=== PATIENT | male | born 2000 | race Caucasian/White ===

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

== ENCOUNTER 2023-06-15 18:02 | Inpatient (IN) | payer BC, SELFPAY ==
[2023-06-15 18:03] VITALS: BP 129/78; PULSE 58; RESP 18; TEMP 36.5; O2SAT 100; BMI 23.8
[2023-06-15] MEDS: Ondansetron 4 MG/2 ML Vial IV (18:25)
[2023-06-15] MEDS: 0.9% Normal Saline (1000mL) 1,000 ML 1000 ML IV (18:26)
--- NOTE | 2023-06-15 18:38 | EX.ED.DYSGE1 ---
HPI History of Present Illness Chief Complaint: Nausea/Vomiting Detail of Chief Complaint: Nausea and vomiting since this morning Informant: patient Onset/Context/Timing Onset: Today and Hours Context: Sudden Onset Timing: Intermittent Quality: Nausea and vomiting numerous times with aching abdominal pain Location: Was generalized now resolved Current Severity: Gone Maximum Severity: Moderate Worsened by: Nothing Relieved by: Nothing Associated Symptoms Associated Symptoms: No other symptoms Narrative Narrative: Patient is a 23-year-old male who presents to the emergency part with nausea and vomiting multiple times since this morning. He states he is vomiting every 2030 minutes. He has vomited several times since arrival. He denies fever or chills. Denies headache. Denies visual, ocular auditory symptoms. He denies neck pain or neck stiffness. He denies cardiac symptoms. Denies respiratory symptoms. He presently has no pain. He does endorse thirst. He denies orthostatic symptoms. He denies dysuria, frequency, urgency or hematuria. He endorses myalgias or arthralgias. He denies rash. No roommates are presently ill. There was a roommate that was ill before that had other symptoms. Prior similar symptoms: No Recent Illness/Hospitalization: No PFSH PFSH Medical History Smoker Medical History no medical history no medical history Home Medications NK 06/15/23 [History Last Taken Unknown] Allergy/AdvReac Type Severity Reaction Status Date / Time No Known Allergies Allergy Verified 05/09/19 17:28 Surgical History no surgical history no surgical history Social History Smoking Status: Current some day smoker tobacco type: e-cigarettes ROS ROS ED Constitutional Constitutional ED: Denies chills, fever(s), subjective, sweats or weight loss Eyes Eyes: Denies blurry vision, change in vision or diplopia ENT ENT ED: Denies ear pain, rhinorrhea or sore throat Cardiovascular Cardiovascular: Denies chest pain or palpitations Respiratory/Chest Respiratory/Chest: Denies cough, dyspnea or dyspnea on exertion Gastrointestinal Gastrointestinal: Reports abdominal pain, nausea and vomiting; Denies constipation, diarrhea or melena Genitourinary Genitourinary ED: Denies dysuria, hematuria or urinary frequency Musculoskeletal Musculoskeletal: Denies arthralgias, back pain, myalgias or neck pain Integumentary Denies rash Neurologic Neurologic: Reports weakness; Denies headache(s) or paresthesias Endocrine Endocrinology: Denies cold intolerance or heat intolerance Hematologic/Lymphatic Hematologic/Lymphatic: Reports systems reviewed and no addt'l complaints, except as documented EXAM Physical Exam Const Vital Signs: 06/15/23 18:03 06/15/23 20:23 Temperature 97.7 F L Temperature Source Temporal Pulse Rate 58 L 58 L Respiratory Rate 18 16 Blood Pressure 129/78 H 147/87 H Blood Pressure Mean 95 107 Pulse Ox 100 100 Oxygen Delivery Method Room Air Room Air Positive well nourished and well developed Constitutional Narrative: Patient appears ill but not toxic. General Appearance ED: well developed and pallor; Negative for cyanotic or diaphoretic HEENT Reports moist mucous membranes HEENT Narrative: Head is atraumatic and normocephalic. Ears are normal. Nares are patent. Posterior pharynx is unremarkable. Eyes PERRL and EOMs intact bilaterally General Eye ED: Negative for pale conjunctiva or scleral icterus Neck no lymphadenopathy, supple and no JVD Chest Wall inspection of chest normal and palpation of chest normal Resp normal respiratory effort and clear to auscultation bilaterally Cardio regular rate, regular rhythm, S1 normal heart sound, S2 normal heart sound and no murmurs GI normal to inspection, nondistended, normoactive bowel sounds, non-tender, non-distended and no masses; Negative for hepatosplenomegaly GI Narrative: Emesis has a brown appearance. Back/Spine no CVA tenderness Extremity normal to inspection Neuro oriented x3, CN's II-XII intact bilaterally and no sensory deficits noted Sensorium / Orientation: alert Psych mental status grossly normal Skin no rashes or lesions noted, no wounds and skin turgor normal General Skin Exam: pallor; Negative for jaundice MDM MDM MDM Narrative Medical decision making narrative: Patient with nausea vomiting. Patient's exam and history is not consistent with bowel obstruction. He has had no prior surgery. His abdomen not distended. Presently is pain-free. Emesis is not appear bloody and there is no coffee grounds. This could represent a viral illness and most likely is the cause of his symptoms. Doubt biliary disease. BMP was obtained to assess renal function and electrolytes as well as anion gap. Patient was treated with Zofran for his nausea. He was not given anything else since he is presently not complaining of pain. Nurse informing that patient's still having nausea vomiting was reassessed at 1920 he is still having nausea and vomiting. He is filled an emesis bag with what appears to be blood. The emesis has flecks of coffee grounds and very brown appearing fluid. In light of this patient received IV Protonix and Reglan. He also was typed and screened. We will add a CBC which was not initially ordered. Triage nurse informing that patient admitted to drinking 7 beers last night. In light of this will obtain liver profile and lipase since this may also represent alcoholic hepatitis and pancreatitis. Parents live in [facility]. They were contacted and informed that their son was in the emergency room and that he will need to be admitted and what specifically was going on. When I spoke to them I was unaware of the alcohol consumption last evening. History & Record Review Additional record(s) reviewed:: No prior records Lab Data Attestation: I reviewed the patient's lab results. Lab results narrative: CO2 is 18 with an elevated anion gap. BUN and creatinine are elevated 21 and 1.41. Calcium slightly elevated which may be due to dehydration. White count is elevated with shift. This most likely is a stress reaction. H&H is 16.5 and 47.5. There are no comparisons. Labs: Laboratory Results - last 24 hr 06/15/23 06/15/23 18:16 19:40 WBC 20.1 H RBC 5.59 Hgb 16.5 Hct 47.4 MCV 84.8 MCH 29.5 MCHC 34.8 RDW Std Deviation 38.6 RDW Coeff of Marva 12.6 Plt Count 347 MPV 11.3 Immature Gran % (Auto) 0.700 Neut % (Auto) 90.9 H Lymph % (Auto) 2.9 L [place] % (Auto) 5.1 Eos % (Auto) 0.0 Baso % (Auto) 0.4 Absolute Neuts (auto) 18.3 H Absolute Lymphs (auto) 0.58 L Nucleated RBC % 0 Differential Comment SCANNED Sodium 138 Potassium 4.1 Chloride 99 Carbon Dioxide 18.0 L Anion Gap 21 H BUN 21 H Creatinine 1.41 H Estim Creat Clear Calc 92.87 Est GFR (MDRD) Af Amer 81 Est GFR (MDRD) Non-Af 67 BUN/Creatinine Ratio 14.9 Glucose 115 H Calcium 10.4 H Total Bilirubin 1.10 H Direct Bilirubin 0.25 AST 38 H ALT 49 Alkaline Phosphatase 42 L Total Protein 8.8 H Albumin 5.3 H Globulin 3.5 Lipase 10 L Blood Type A POSITIVE Antibody Screen NEGATIVE Discharge Plan Dx/Rx/DC Orders Clinical Impression: KAUSHAL (acute kidney injury), High anion gap metabolic acidosis, Intractable nausea and vomiting, Acute upper GI bleed Disposition Disposition: Acute Care Hospital [facility]
[2023-06-15 18:41] LABS: Anion Gap 21 (5-15); BUN 21 mg/dL (7-18); BUN/Creat Ratio 14.9 RATIO (10-20); Calcium,Total 10.4 mg/dL (8.5-10.1); Chloride 99 mmol/L (98-107); Creatinine, Serum 1.41 mg/dL (0.70-1.30); EST Glomerular Filtration Rate 67 mL/min (>60); Est Glom Filt Rate - Afr Amer 81 mL/min (>60); Estimated Creatinine Clearance 92.87 ml/min; Glucose 115 mg/dL (74-106); Potassium 4.1 mmol/L (3.5-5.1); Sodium Level 138 mmol/L (136-145)
[2023-06-15] MEDS: Metoclopramide 10 MG/2 ML Vial 5 MG IV (19:35)
[2023-06-15] MEDS: Pantoprazole Sodium 80 MG in 0.9% Normal Saline (50mL Bag) 15 ML 420 MG IV BOLUS (19:41)
[2023-06-15 20:11] LABS: Absolute Lymphocyte Count 0.58 X10^3/uL (0.83-4.51); Absolute Neutrophil Count 18.3 X10^3/uL (2.0-7.7); Basophil# 0.08 X10^3/uL; Basophil% 0.4 % (0-1); Hematocrit 47.4 % (40-54); Hemoglobin 16.5 g/dL (13.0-16.5); Lymphocyte # 0.58 X10^3/ul (0.83-4.51); Lymphocyte % 2.9 % (19-41); Mean Corp Hgb Conc 34.8 g/dL (32-36); Mean Corpuscular Hgb 29.5 pg (27.0-32.0); Mean Corpuscular Volume 84.8 fL (80-94); Mean Platelet Vol. 11.3 fl (6.2-12.0); Monocyte# 1.03 X10^3/uL; Monocyte% 5.1 % (0-10); NRBC Flagged by Analyzer 0 % (0-5); Neutrophil # 18.28 X10^3/uL (2.7-7.7); Neutrophil % 90.9 % (47-70); POSITIVE DIFFERENTIAL YES; Platelet Count 347 K/mm3 (150-450); RBC Distribution Width CV 12.6 % (11.6-14.6); RBC Distribution Width SD 38.6 fl (35.1-43.9); Red Blood Count 5.59 M/mm3 (4.6-6.2); White Blood Count 20.1 K/mm3 (4.4-11.0)
[2023-06-15 20:13] LABS: Differential Indicated SCAN CRITERIA MET
[2023-06-15 20:23] VITALS: BP 147/87; PULSE 58; RESP 16; O2SAT 100
[2023-06-15 20:27] LABS: AST(SGOT) 38 U/L (15-37); Alanine Aminotransfer ALT/SGPT 49 U/L (16-61); Albumin, Serum 5.3 g/dL (3.2-5.0); Alkaline Phosphatase 42 U/L (45-117); Bilirubin, Direct 0.25 mg/dL (0.00-0.30); Globulin 3.5 g/dL (2.2-4.2); Protein, Total 8.8 g/dL (6.4-8.2)
[2023-06-15 20:30] LABS: Lipase 10 U/L (13-75)
[2023-06-15 20:37] LABS: Differential Comment SCANNED
--- NOTE | 2023-06-15 22:05 | PCM.HP.STD ---
HPI - General General Date of Admission: 06/15/23 Date of Service: 06/15/23 Chief Complaint: Nausea and vomiting HPI Narrative MARIELY BRIONES, is a 23 M with a significant history of alcoholism who presents emergency department with multiple episodes of vomiting. His nausea and vomiting started at about 8 AM on the day of presentation. He reported that he was vomiting about every 20 minutes. Subsequent vomitus looked brown. Emergency department doctor look at patient's emesis at the ED and determined that it looked bloody. He reports abdominal pain earlier on the day of presentation. On the night before presentation patient drank heavily. Patient who had graduated from the [employer] a year ago stop by at the [employer] to celebrate [place] weekend with his friends who are still at the [employer] and had so much to drink as above. Patient reports drinking about 3 times every week. Reportedly on the days that he drinks he drinks about 7 bottles of beer. PFSH Medical History Smoker Medical History no medical history Home Medications NK 06/15/23 [History Last Taken Unknown] Allergy/AdvReac Type Severity Reaction Status Date / Time No Known Allergies Allergy Verified 05/09/19 17:28 Family History Other Cancer Surgical History no surgical history no surgical history Social History Smoking Status: Current some day smoker tobacco type: e-cigarettes ROS ROS Narrative Pertinent positives and pertinent negatives as noted in HPI. All other systems were reviewed and are negative Vital Signs Vital Signs Vital Signs: 06/15/23 18:03 06/15/23 20:23 Temperature 97.7 F L Temperature Source Temporal Pulse Rate 58 L 58 L Respiratory Rate 18 16 Blood Pressure 129/78 H 147/87 H Blood Pressure Mean 95 107 Pulse Ox 100 100 Oxygen Delivery Method Room Air Room Air Weight Weight: 82.1 kg Body Mass Index (BMI) 23.8 Physical Exam Narrative Physical exam: General: Well-nourished, well-developed. Head: Normocephalic, atraumatic, no tenderness Eyes: Vision is grossly intact. EOMI ENT, no trauma, moist mucous membranes, no rhinorrhea Neck: Nontender, No thyromegaly. CVS: Regular rate and rhythm. S1-S2 present. No murmur, gallop or rub. Respiratory : clear to auscultation bilaterally, chest wall nontender Abdomen: Soft, nontender, nondistended, normal bowel sounds, no masses : Deferred Back: Nontender, no CVA tenderness. Extremities: Nontender full range of motion, no trauma Skin: Normal color, no trauma, abrasions Neuro: Alert, oriented, cranial nerves II through XII grossly intact. Psychiatry: Normal mood. Normal affect. Not depressed. Not anxious. Results Lab / Micro Data 06/16/23 00:01 06/15/23 18:16 Labs: Laboratory Results - last 24 hr 06/15/23 18:16: Sodium 138, Potassium 4.1, Chloride 99, Carbon Dioxide 18.0 L, Anion Gap 21 H, BUN 21 H, Creatinine 1.41 H, Estim Creat Clear Calc 92.87, Est GFR (MDRD) Af Amer 81, Est GFR (MDRD) Non-Af 67, BUN/Creatinine Ratio 14.9, Glucose 115 H, Calcium 10.4 H, Total Bilirubin 1.10 H, Direct Bilirubin 0.25, AST 38 H, ALT 49, Alkaline Phosphatase 42 L, Total Protein 8.8 H, Albumin 5.3 H, Globulin 3.5, Lipase 10 L 06/15/23 19:40: WBC 20.1 H, RBC 5.59, Hgb 16.5, Hct 47.4, MCV 84.8, MCH 29.5, MCHC 34.8, RDW Std Deviation 38.6, RDW Coeff of Marva 12.6, Plt Count 347, MPV 11.3, Immature Gran % (Auto) 0.700, Neut % (Auto) 90.9 H, Lymph % (Auto) 2.9 L, [place] % (Auto) 5.1, Eos % (Auto) 0.0, Baso % (Auto) 0.4, Absolute Neuts (auto) 18.3 H, Absolute Lymphs (auto) 0.58 L, Nucleated RBC % 0, Differential Comment SCANNED, Blood Type A POSITIVE, Antibody Screen NEGATIVE Assessment & Plan Assessment/Plan (1) Acute upper GI bleed: (2) High anion gap metabolic acidosis: (3) Intractable nausea and vomiting: (4) KAUSHAL (acute kidney injury): PLAN: Plan Intractable nausea and vomiting with acute upper GI bleed. Etiology could be from gastritis, Boerhave syndrome, or Valorie-Higuera tears. Normal saline hydration ordered. Protonix IV ordered. Trend H&H and CBC. GI consult was considered. However patient reports improvement in symptoms. We will hold on GI consult for now. If patient symptoms will care or he becomes significantly anemic consider consulting GI. N.p.o. ordered. However, patient is requesting ice chips. Will permit a chips before midnight of 06/16/2023. Acute kidney injury Creatinine of 1.1 on presentation. With his age of being 23 most likely this is KAUSHAL. Gentle IV hydration. Avoid nephrotoxic's. Trend CMP. Anion gap metabolic acidosis Patient with Of 18: Anion gap of 21. Likely secondary to uremia. Treat KAUSHAL as above. Trend CMP. Alcoholism Counseled Placed on CIWA protocol with as needed Ativan IV. Hyperbilirubinemia Likely from stress. Trend CMP. Hypocalcemia Counseled about 10.4 on presentation. IV fluids as above. Trend CMP. Elevated liver enzymes AST is mildly elevated. Likely due to alcoholism. Trend. DVT prophylaxis: Low risk. Encourage ambulation. Time spent in the patient's overall evaluation,decision-making process, review of diagnostic data, adjustment of management, discussion with other providers, nursing and ancillary staff involved in patient's care documentation, 75 minutes. Charges/Coding Visit Charges Inpatient E&M: 51939 Init Hosp L3
[2023-06-15 22:17] VITALS: BP 156/60; PULSE 61; RESP 16; O2SAT 100
[2023-06-15 22:47] VITALS: BMI 22.8
[2023-06-15 22:50] VITALS: BP 122/58; PULSE 64; RESP 14; TEMP 37.1; O2SAT 98
[2023-06-15] MEDS: 0.9% Normal Saline (1000mL) 1,000 ML 100 ML IV (23:08)
[2023-06-15] MEDS: proCHLORPERazine 10 MG/2 ML Vial 5 MG IV (23:37)
[2023-06-15] MEDS: 0.9% Saline Lock 10 ML Syringe IV (23:38)
[2023-06-15] MEDS: Thiamine Hydrochloride 100 MG in 0.9% Normal Saline (50mL Bag) 50 ML 200 MG IV (23:40)
[2023-06-16 00:14] LABS: Hematocrit 44.9 % (40-54); Hemoglobin 15.1 g/dL (13.0-16.5)
[2023-06-16 04:44] VITALS: BP 153/95; PULSE 99; RESP 16; TEMP 37.2; O2SAT 98
[2023-06-16 06:54] LABS: Absolute Lymphocyte Count 0.53 X10^3/uL (0.83-4.51); Absolute Neutrophil Count 14.8 X10^3/uL (2.0-7.7); Basophil# 0.05 X10^3/uL; Basophil% 0.3 % (0-1); Eosinophil# 1.48 X10^3/uL; Eosinophils% 7.9 % (0-5); Hemoglobin 14.5 g/dL (13.0-16.5); Lymphocyte # 0.53 X10^3/ul (0.83-4.51); Lymphocyte % 2.8 % (19-41); Mean Corp Hgb Conc 33.7 g/dL (32-36); Mean Corpuscular Hgb 28.8 pg (27.0-32.0); Mean Corpuscular Volume 85.5 fL (80-94); Mean Platelet Vol. 10.8 fl (6.2-12.0); Monocyte# 1.79 X10^3/uL; Monocyte% 9.5 % (0-10); NRBC Flagged by Analyzer 0 % (0-5); Neutrophil # 14.81 X10^3/uL (2.7-7.7); Neutrophil % 78.9 % (47-70); POSITIVE DIFFERENTIAL YES; POSITIVE MORPHOLOGY YES; Platelet Count 248 K/mm3 (150-450); RBC Distribution Width SD 39.9 fl (35.1-43.9); Red Blood Count 5.03 M/mm3 (4.6-6.2); White Blood Count 18.8 K/mm3 (4.4-11.0)
[2023-06-16 07:04] LABS: Differential Indicated SCAN CRITERIA MET
[2023-06-16 07:18] LABS: ALB/GLOB Ratio 1.2 RATIO (0.9-2.4); AST(SGOT) 25 U/L (15-37); Alanine Aminotransfer ALT/SGPT 40 U/L (16-61); Albumin, Serum 4.2 g/dL (3.2-5.0); Alkaline Phosphatase 35 U/L (45-117); Anion Gap 14 (5-15); BUN 17 mg/dL (7-18); BUN/Creat Ratio 12.6 RATIO (10-20); Calcium,Total 9.2 mg/dL (8.5-10.1); Chloride 104 mmol/L (98-107); Creatinine, Serum 1.35 mg/dL (0.70-1.30); EST Glomerular Filtration Rate 70 mL/min (>60); Est Glom Filt Rate - Afr Amer 85 mL/min (>60); Estimated Creatinine Clearance 95.66 ml/min; Globulin 3.5 g/dL (2.2-4.2); Glucose 122 mg/dL (74-106); Potassium 4.4 mmol/L (3.5-5.1); Protein, Total 7.7 g/dL (6.4-8.2); Sodium Level 137 mmol/L (136-145)
[2023-06-16 07:25] VITALS: O2SAT 97
[2023-06-16] MEDS: 0.9% Normal Saline (1000mL) 1,000 ML 100 ML IV ×2 (08:25→21:45)
[2023-06-16 08:29] VITALS: BP 137/89; PULSE 101; RESP 18; TEMP 37.4; O2SAT 98
--- NOTE | 2023-06-16 09:08 | PCM.PN.HOSP ---
Subjective Subjective No further episodes of emesis, denies any significant abdominal pain feeling a bit better. Objective Data Objective Data Vital Signs: Vital Signs Temp Pulse Resp BP Pulse Ox O2 Del Method 99.3 F H 101 H 18 137/89 H 98 Room Air 06/16/23 08:29 06/16/23 08:29 06/16/23 08:29 06/16/23 08:29 06/16/23 08:29 06/16/23 08:30 Oxygen Delivery Method Room Air Weight: 173 lb 11.588 oz Body Mass Index (BMI) 22.8 Intake & Output: Intake and Output for Last 24 Hours 06/15/23 06/16/23 06/17/23 03:59 03:59 03:59 Intake Total 1247.67 / 1247.67 848.33 / 848.33 Output Total 300 / 300 Balance 947.67 / 947.67 848.33 / 848.33 Lab / Micro Data 06/16/23 05:45 06/16/23 05:45 Labs: Laboratory Results - last 24 hr 06/15/23 18:16: Sodium 138, Potassium 4.1, Chloride 99, Carbon Dioxide 18.0 L, Anion Gap 21 H, BUN 21 H, Creatinine 1.41 H, Estim Creat Clear Calc 92.87, Est GFR (MDRD) Af Amer 81, Est GFR (MDRD) Non-Af 67, BUN/Creatinine Ratio 14.9, Glucose 115 H, Calcium 10.4 H, Total Bilirubin 1.10 H, Direct Bilirubin 0.25, AST 38 H, ALT 49, Alkaline Phosphatase 42 L, Total Protein 8.8 H, Albumin 5.3 H, Globulin 3.5, Lipase 10 L 06/15/23 19:40: WBC 20.1 H, RBC 5.59, Hgb 16.5, Hct 47.4, MCV 84.8, MCH 29.5, MCHC 34.8, RDW Std Deviation 38.6, RDW Coeff of Marva 12.6, Plt Count 347, MPV 11.3, Immature Gran % (Auto) 0.700, Neut % (Auto) 90.9 H, Lymph % (Auto) 2.9 L, [place] % (Auto) 5.1, Eos % (Auto) 0.0, Baso % (Auto) 0.4, Absolute Neuts (auto) 18.3 H, Absolute Lymphs (auto) 0.58 L, Nucleated RBC % 0, Differential Comment SCANNED, Blood Type A POSITIVE, Antibody Screen NEGATIVE 06/16/23 00:01: Hgb 15.1, Hct 44.9 06/16/23 05:45: WBC 18.8 H, RBC 5.03, Hgb 14.5, Hct 43.0, MCV 85.5, MCH 28.8, MCHC 33.7, RDW Std Deviation 39.9, RDW Coeff of Marva 13.0, Plt Count 248, MPV 10.8, Immature Gran % (Auto) 0.600, Neut % (Auto) 78.9 H, Lymph % (Auto) 2.8 L, [place] % (Auto) 9.5, Eos % (Auto) 7.9 H, Baso % (Auto) 0.3, Absolute Neuts (auto) 14.8 H, Absolute Lymphs (auto) 0.53 L, Nucleated RBC % 0, Diff Path Review December, Sodium 137, Potassium 4.4, Chloride 104, Carbon Dioxide 19.0 L, Anion Gap 14, BUN 17, Creatinine 1.35 H, Estim Creat Clear Calc 95.66, Est GFR (MDRD) Af Amer 85, Est GFR (MDRD) Non-Af 70, BUN/Creatinine Ratio 12.6, Glucose 122 H, Calcium 9.2, Total Bilirubin 0.90, AST 25, ALT 40, Alkaline Phosphatase 35 L, Total Protein 7.7, Albumin 4.2, Globulin 3.5, Albumin/Globulin Ratio 1.2 Physical Exam Narrative General: Alert, Oriented x3, Cooperative, No apparent distress HEENT: Atraumatic, PERRLA, EOMI, Normocephalic Oral: Moist Mucosa Neck: Supple, No JVD Lungs: Clear to auscultation, Normal air movement, No rhonchi, No wheeze, No rales Cardiovascular: Regular rate, Regular Rhythm, Normal S1, Normal S2, No murmurs Abdomen: Soft, Non Tender, Non-Distended, No Hepato-splenomegaly Extremities: No edema, Capillary Refill Less than 3 Seconds Skin: No rashes, No breakdown Musculoskeletal: No Tenderness to Palpation of Joints or Extremities Neurological: Cranial nerves II-XII grossly intact, Motor Exam 5/5 strength throughout, Sensory exam intact to light touch and pain Psych/Mental Status: Normal Affect, Appropriate Assessment & Plan Assessment/Plan (1) Acute upper GI bleed: (2) High anion gap metabolic acidosis: (3) Intractable nausea and vomiting: (4) KAUSHAL (acute kidney injury): PLAN: Plan 1. Nausea and vomiting with upper GI bleed/KAUSHAL/elevated LFTs ? This is likely due to alcoholic gastritis ? Continue with PPI ? She no longer has any further symptoms of nausea and has not vomited today. ? We will trial him on a regular diet and recheck his hemoglobin ? We will continue with IV fluids, his bicarb is improving his anion gap has resolved it does appear that he likely has an KAUSHAL, our initial creatinine on admission was 1.41 and he is now down to 1.35 today we will continue to monitor ? Liver function test have resolved does not appear that he is a chronic alcoholic versus a binge drinking episode during weekend DVT: Ambulation Charges/Coding Visit Charges Inpatient E&M: 09832 Subs Hosp L2
[2023-06-16] MEDS: Thiamine Hydrochloride 100 MG in 0.9% Normal Saline (50mL Bag) 50 ML 200 MG IV (09:22)
[2023-06-16] MEDS: Pantoprazole Sodium 40 MG in 0.9% Normal Saline (100mL MB+) 100 ML 330 MG IV ×2 (09:49→21:42)
[2023-06-16] MEDS: BENZOCAINE/MENTHOL 1 LOZENGE MUCOUS MEM ×4 (09:49→21:42)
[2023-06-16] MEDS: Acetaminophen 325 MG Tablet 650 MG PO (09:50)
[2023-06-16] MEDS: Folic Acid 1 MG in 0.9% Normal Saline (50mL Bag) 50 ML 200 MG IV (10:34)
[2023-06-16 12:40] LABS: Hematocrit 41.2 % (40-54); Hemoglobin 14.4 g/dL (13.0-16.5)
--- NOTE | 2023-06-16 13:25 | CASEMGMT ---
DEVYN GARDNER Assessment: Face to Face with pt for initial transition planning/care coordination assessment. RN JJ introduced self and role at [facility], pt voices understanding and consents to assessment. Pt is O x4 and answers all questions appropriately at this time. Care providers, pharmacy, and demographics verified/updated. Pt parents present in room and pt agreeable to assessment with them present. Admitting Dx: alcoholic gastritis PCP:Kishan Barber Specialists:Denies Preferred Pharmacy: [facility] Retail Insurance: [employer] Prescription Benefit: yes LNOK: Lashawn Blair, mother Living Arrangements: Pt lives with parents in a three story home with 3 steps to enter. Pt reports he is I in ADL's and denies concerns at home. Transportation: Pt drives self and denies concerns with transportation. DME:Pt denies having any DME in the home. Does not use AD. HHC/SNF: Denies hx of Pt states no concerns with going home at time of dc. Pt report having a [address] to go home and asks if possible to be dc'd earlier than later. CM to follow. Advised pt to ask CM if any further question/concerns/needs arise, voices understanding. Pt Goal: Home Plan: Home
[2023-06-16 15:16] VITALS: BP 148/92; PULSE 66; RESP 18; TEMP 37.1; O2SAT 100
--- NOTE | 2023-06-16 17:50 | CASEMGMT ---
Social Work Referral source: identification Reason for consult: Alcoholic gastritis Chart reviewed and noted patient to hospital after an episode of alcohol use while visiting friends a the [employer]. Met with patient and patient's mother Lashawn in room. Introduced to self and role. This senior technical writer did ask to speak with patient privately. Mother agreed to leave the room without issue. Patient reports graduated from [employer] last year with a degree in Physics, and played baseball for the duration of time at college. Patient reports currently living with his parents and older brother at home in [place]. Patient reports was back in [place] visiting a friend who goes to [employer], and then decided to come back to [place] to see some old friends. Patient reports was out partying for [facility], and drank too much. Patient denies feeling to have an alcohol use issue. Denies ever feeling guilty about amount of alcohol he consumes, denies any prior such episodes of drinking which required hospitalization. Patient denies any family have ever expressed concern to patient regarding his alcohol use. Patient reports on average drinks alcohol about 3 times a week when playing video games with friends. Denies feeling dependent, or needing alcohol to function. Patient reports history of trying marijuana in the past, but nothing recent or current, and use was after legalization for recreational use in [place]. Denies any other substance use history. Denies any history of depression or anxiety. Reports episode of feeling sad, such as after someone dies, but nothing which required treatment. Denies any history of SI, action, or intent. Patient reports to feel safe in home situation. Denies any concerns for home going, and reports plan to abstain from alcohol for at least a couple of weeks, as did not like how felt after this episode of drinking. Patient's mother in the hallway when this senior technical writer left the room. Mother reports to be doing okay, and will be working from home this week to keep an eye on patient. Mother voiced no other concerns, or questions for this senior technical writer. Expressed thanks to the hospital, staff and providers for the care patient has received. Mother reports to feel care has been positive and helpful. No other needs requested. Patient plans to return home with mother, and denies any concerns about substance use. -JASMYN Butts
[2023-06-16 21:37] VITALS: BP 144/94; PULSE 74; RESP 18; TEMP 36.8; O2SAT 99
[2023-06-17 04:36] VITALS: BP 142/112; PULSE 59; RESP 18; TEMP 37.1; O2SAT 99
[2023-06-17] MEDS: 0.9% Normal Saline (1000mL) 1,000 ML 100 ML IV (04:39)
[2023-06-17] MEDS: BENZOCAINE/MENTHOL 1 LOZENGE MUCOUS MEM (04:39)
[2023-06-17] MEDS: Ondansetron 4 MG/2 ML Vial IV (05:03)
[2023-06-17] MEDS: 0.9% Saline Lock 10 ML Syringe IV ×2 (05:03→06:56)
[2023-06-17] MEDS: proCHLORPERazine 10 MG/2 ML Vial 5 MG IV (06:56)
[2023-06-17 07:12] LABS: Absolute Lymphocyte Count 0.74 X10^3/uL (0.83-4.51); Absolute Neutrophil Count 10.7 X10^3/uL (2.0-7.7); Basophil# 0.05 X10^3/uL; Basophil% 0.4 % (0-1); Eosinophil# 0.02 X10^3/uL; Eosinophils% 0.2 % (0-5); Hematocrit 40.1 % (40-54); Hemoglobin 13.7 g/dL (13.0-16.5); Lymphocyte # 0.74 X10^3/ul (0.83-4.51); Lymphocyte % 5.8 % (19-41); Mean Corp Hgb Conc 34.2 g/dL (32-36); Mean Corpuscular Hgb 28.8 pg (27.0-32.0); Mean Corpuscular Volume 84.4 fL (80-94); Mean Platelet Vol. 10.6 fl (6.2-12.0); Monocyte# 1.15 X10^3/uL; Monocyte% 9.1 % (0-10); NRBC Flagged by Analyzer 0 % (0-5); Neutrophil # 10.68 X10^3/uL (2.7-7.7); Neutrophil % 84.2 % (47-70); Platelet Count 183 K/mm3 (150-450); RBC Distribution Width CV 12.6 % (11.6-14.6); RBC Distribution Width SD 38.6 fl (35.1-43.9); Red Blood Count 4.75 M/mm3 (4.6-6.2); White Blood Count 12.7 K/mm3 (4.4-11.0)
[2023-06-17 07:52] LABS: Anion Gap 11 (5-15); BUN 9 mg/dL (7-18); BUN/Creat Ratio 9.7 RATIO (10-20); Chloride 102 mmol/L (98-107); Creatinine, Serum 0.93 mg/dL (0.70-1.30); EST Glomerular Filtration Rate 108 mL/min (>60); Est Glom Filt Rate - Afr Amer 130 mL/min (>60); Estimated Creatinine Clearance 138.86 ml/min; Glucose 100 mg/dL (74-106); Potassium 3.2 mmol/L (3.5-5.1); Sodium Level 134 mmol/L (136-145)
[2023-06-17 09:14] VITALS: BP 141/90; PULSE 66; RESP 16; TEMP 37.1; O2SAT 97
[2023-06-17] MEDS: Thiamine Hydrochloride 100 MG in 0.9% Normal Saline (50mL Bag) 50 ML 200 MG IV (09:27)
--- NOTE | 2023-06-17 09:53 | PCM.DC.SUM ---
Providers Date of Admission: 06/15/23 Date of Discharge: 06/17/23 Primary Care Physician: No Primary Care Phys Reason For Visit: ALCOHOLIC GASTRITIS Diagnosis Discharge Diagnosis (1) Acute upper GI bleed: Status: Acute Code(s): K92.2 - Gastrointestinal hemorrhage, unspecified (2) High anion gap metabolic acidosis: Status: Acute Code(s): E87.29 - Other acidosis (3) Intractable nausea and vomiting: Status: Acute Code(s): R11.2 - Nausea with vomiting, unspecified (4) KAUSHAL (acute kidney injury): Status: Acute Code(s): N17.9 - Acute kidney failure, unspecified Medications at Discharge Home Medications pantoprazole 40 mg tablet,delayed release (Protonix) 40 mg PO BID #60 tabs 06/17/23 Hospital Course Summary of Care Provided Minutes Spent on Discharge: 35 Hospital Course: Patient is a 23-year-old gentleman who presented with intractable nausea and vomiting following bouts of drinking 1. Upper GI bleed ? Secondary to alcoholic gastritis admitted to regular nursing floor managed symptomatically. Patient did respond to treatment discharged 2 days following his admission on Protonix. Plans for patient to follow-up with his primary care physician following discharge Physical Exam Narrative GENERAL: cooperative HEENT: Atraumatic; normocephalic EYES; Anicteric, Normal Conjunctiva NECK; supple, normal thyroid, RESPIRATORY: Diminished to auscultation CARDIOVASCULAR: Regular S1 S2, GI: soft, normoactive bowel sounds, : No Renal angle tenderness; EXTREMITIES: No edema, no clubbing, MUSCULOSKELETAL: no muscle wasting NEURO: Awake; no lateralizing signs. SKIN: No Rash PSYCH; Flat affect Weight / BMI Weight Weight: 78.8 kg Body Mass Index (BMI) 22.8 ABG / Lab / Microbiology Data 06/17/23 06:33 06/17/23 06:33 Laboratory: Laboratory Results - last 24 hr 06/16/23 12:31: Hgb 14.4, Hct 41.2 06/17/23 06:33: WBC 12.7 H, RBC 4.75, Hgb 13.7, Hct 40.1, MCV 84.4, MCH 28.8, MCHC 34.2, RDW Std Deviation 38.6, RDW Coeff of Marva 12.6, Plt Count 183, MPV 10.6, Immature Gran % (Auto) 0.300, Neut % (Auto) 84.2 H, Lymph % (Auto) 5.8 L, [place] % (Auto) 9.1, Eos % (Auto) 0.2, Baso % (Auto) 0.4, Absolute Neuts (auto) 10.7 H, Absolute Lymphs (auto) 0.74 L, Nucleated RBC % 0, Sodium 134 L, Potassium 3.2 L, Chloride 102, Carbon Dioxide 21.0, Anion Gap 11, BUN 9, Creatinine 0.93, Estim Creat Clear Calc 138.86, Est GFR (MDRD) Af Amer 130, Est GFR (MDRD) Non-Af 108, BUN/Creatinine Ratio 9.7 L, Glucose 100, Calcium 9.0 D/C Instructions Discharge Diet: No restrictions Discharge Activity: Return to Normal Activity Call your doctor if you observe: Fever of 101 or Higher, Shortness of breath, Fainting spells and Chest pain Meaningful Use Info Meaningful Use Diagnoses (Choose all that apply): None applicable Discharge Plan Admission Admit Date/Time: 06/15/23 22:08 Attending Provider: Julian Ayala Primary Care Provider: Care Physician,No Primary Consulting Providers: Miles Chapman; Luis White Discharge Orders/Prescriptions Prescriptions: New pantoprazole [Protonix] 40 mg tablet,delayed release (DR/EC) 40 mg PO BID Qty: 60 0RF Referrals / Follow Up: Care Physician,No Primary [Primary Care Provider] - Within 1 Week Disposition Disposition (needs filled in before D/C Order can be placed): Home, Self Care Charges/Coding Visit Charges Inpatient E&M: 88958 Disch Hosp >30min
[2023-06-17 10:26] LABS: Pathologist Review Reviewed
[2023-06-17] MEDS: Folic Acid 1 MG in 0.9% Normal Saline (50mL Bag) 50 ML 200 MG IV (10:36)
[2023-06-17] MEDS: Influenza Virus Vac Quad 23-24 60 MCG/0.5 ML SYRINGE IM (10:37)
--- NOTE | 2023-06-17 11:03 | CASEMGMT ---
Pt. has order for D/C. RN CM in to room to discuss needs at discharge. Pt. denies needs at this time. Pt. had no further questions/concerns at this time.
== END 2023-06-17 11:35 | disposition home or self-care (01) | DRG 378 ==
LOC: ED 20:45 → MS3 22:23
PROVIDERS: Family Medicine; Admitting Provider Hospitalist; Emergency Provider Emergency Medicine; Visit Provider Internal Medicine
DX: K29.21 Alcoholic gastritis with bleeding (principal); N17.9 Acute kidney failure, unspecified; E87.20 Acidosis, unspecified; E83.51 Hypocalcemia; F17.210 Nicotine dependence, cigarettes, uncomplicated
CPT/HCPCS: 36415; 80048; 80053; 80076; 83690; 85014; 85018; 85025; 86850; 86900; 86901; 99284; J7030; 90686; A4216; J2405; J3490